=== PATIENT | male | born 1950 | race Caucasian/White ===

== ENCOUNTER 2018-09-07 08:36 | Inpatient (IN) | payer MEDICARE, BC ==
[2018-09-07 09:57] VITALS: BP 164/80
[2018-09-07] MEDS ORDERED: Maalox 30 mL Cup PO PRN (10:12)
[2018-09-07] MEDS ORDERED: Magnesium Hydroxide (MOM) 30 mL UDC PO PRN (10:12)
[2018-09-07] MEDS: Carbidopa/Levodopa 50/200 mg 1 TER TER PO SCH (17:12)
[2018-09-07] MEDS: Atorvastatin Calcium 10 MG TAB PO SCH (20:26)
--- NOTE | 2018-09-08 03:41 | History & Physical ---
ADMIT DATE: 09/07/2018 REASON FOR CONSULTATION: For Internal Medicine coverage. HISTORY OF PRESENT ILLNESS: This is a 68-year-old male with past medical history of PTSD, who was brought in because of aggressive behavior. A few hours prior to admission, the patient was very aggressive, agitated, and throwing objects to his and son. The Police Department was called and he was taken in for a 5150 hold. He then proceeded to the [facility] Emergency Room wherein he underwent extensive workup. His blood pressure upon arrival was 170/80, but chest x-ray revealed no acute disease. Urine exam was negative for any toxins. PAST MEDICAL HISTORY: 1. PTSD ([place] ). 2. Alzheimer dementia. 3. Parkinson's disease. 4. Essential hypertension. CURRENT MEDICATIONS: He is currently on acetaminophen, atorvastatin, carbidopa/levodopa, lorazepam, losartan, multivitamins, and zolpidem. ALLERGIES: SULFA. SOCIAL AND FAMILY HISTORY: I was not able to obtain directly from the patient because he is currently sedated due to his aggressive behavior. REVIEW OF SYSTEMS: Again, I was not able to decipher from the patient because of the same reason. PHYSICAL EXAMINATION: GENERAL: As mentioned, the patient is sedated, quiet at the present time. VITAL SIGNS: He is afebrile, blood pressure 164/80, and pulse is 60. SKIN: Poor turgor, warm, no rash, no jaundice appreciated. HEENT: Head normocephalic, atraumatic. Eyes: Unable to assess his extraocular muscles. Pupils are equal, round, reactive to light and accommodates. Anicteric sclerae. Pale conjunctivae. Nose, midline nasal septum. Mouth: Dry mucosa, poor dentition. NECK: Supple, no adenopathy, no thyromegaly, no bruits. Trachea palpated in the midline. CHEST AND CARDIOVASCULAR: S1, S2. No rub, murmur, nor gallop appreciated. Point of maximal impulse fifth intercostal space, left midclavicular line. No abdominal or femoral bruits appreciated. LUNGS: Equal expansion. No use of accessory muscles. No supraclavicular retractions. Decreased breath sounds, few rhonchi, but no rales nor wheezes appreciated. ABDOMEN: Flat, soft, positive for bowel sounds. No bruits either diastolic or systolic. RECTAL: Deferred. GENITOURINARY: Deferred. MUSCULOSKELETAL: No effusions present in his joints, but unable to assess his range of motion. EXTREMITIES: No evidence of edema, cyanosis, nor clubbing, with palpable femoral, popliteal, and dorsalis pedis pulses. NEUROLOGIC: The patient as mentioned is sedated, so I was not able to pursue further my neuro exam. IMPRESSION: 1. Acute psych decompensation. 2. Posttraumatic stress disorder. 3. Alzheimer dementia. 4. Parkinson's disease. 5. Essential hypertension. PLAN: 1. Control blood pressures secondary to his agitation. 2. Continue on with psych meds. JOB# [id number]
[2018-09-08 07:31] LABS: % BASOPHILS 0.5 % (0.0-2.0); % LYMPHOCYTES 19.9 % (20.0-50.0); % MONOCYTES 9.9 % (2.0-10.0); % NEUTROPHILS 67.7 % (40.0-80.0); EOSINOPHILE ABSOLUTE 0.1 Th/cmm (0.1-0.4); HEMATOCRIT 42.1 % (41.0-60); HEMOGLOBIN 14.6 gm/dL (12-16); LYMPHOCYTE ABSOLUTE 1.3 Th/cmm (1.5-3.0); MEAN CELL VOLUME 86.1 fl (80-99); MEAN CORPUSCULAR HEMOGLOBIN 29.8 pg (27.0-31.0); MEAN CORPUSCULAR HGB CONC 34.6 pg (28.0-36.0); MEAN PLATELET VOLUME 7.7 fl; MONOCYTE ABSOLUTE 0.6 Th/cmm (0.3-1.0); NEUTROPHILE ABSOLUTE 4.5 Th/cmm (1.8-8.0); PLATELET COUNT 180 Th/cmm (150-400); RED CELL DISTRIBUTION WIDTH 12.4 % (11.5-20.0); WHITE BLOOD COUNT 6.5 Th/cmm (4.8-10.8)
[2018-09-08 07:50] LABS: ALB/GLOB RATIO 1.6 (1.0-1.8); ALBUMIN 3.6 gm/dL (4.2-5.5); ALKALINE PHOSPHATASE 63 U/L (34-104); ANION GAP 11.8 (7.0-16.0); BILIRUBIN,TOTAL 0.8 mg/dL (0.3-1.0); BUN - UREA NITROGEN 16 mg/dL (7-25); CALCIUM SERUM 8.9 mg/dL (8.6-10.3); CARBON DIOXIDE 27.8 mEq/L (21.0-31.0); CHLORIDE 107 mEq/L (98-107); CHOLESTEROL 129 mg/dL (<200); GFR AFRICAN-AMERICAN > 60.0 ml/min (>90); GFR NON AFRICAN-AMERICAN > 60.0 ml/min; GLUCOSE 140 mg/dL (70-105); HDL -HIGH DENSITY LIPOPROTEIN 29 mg/dL (23-92); POTASSIUM SERUM 3.6 mEq/L (3.5-5.1); SGOT 35 U/L (13-39); SGPT/ALT 20 U/L (7-52); SODIUM SERUM 143 mEq/L (136-145); TOTAL PROTEIN,SERUM 5.8 gm/dL (6.0-8.3); TRIGLYCERIDES 92 mg/dL (<150)
[2018-09-08] MEDS ORDERED: Non-Formulary Item 1 EA (Losartan Potassium [Cozaar] 100 MG) PO SCH (09:00)
[2018-09-08] MEDS: Carbidopa/Levodopa 50/200 mg 1 TER TER PO SCH ×2 (09:25→17:14)
[2018-09-08] MEDS: Multivitamin Tab PO SCH (09:25)
--- NOTE | 2018-09-08 13:00 | Psychiatric Evaluation ---
DATE OF SERVICE: 09/07/2018 IDENTIFYING INFORMATION: The patient is a 68-year-old male. CHIEF COMPLAINT: No information. HISTORY OF PRESENT ILLNESS: The patient is brought because of aggressive behavior with a history of PTSD. The patient was very aggressive few hours prior to admission, agitated, throwing objects on his and son; the police, mom has called and was taken in for a on hold, then proceeded to [facility] Emergency Room, where he underwent extensive workup. The patient is a [place] with a history of dementia, Parkinson disease, and PTSD. The patient was a poor historian, unable to participate in meaningful conversation or make safe plan for self-care or tell me why he is here. PAST PSYCHIATRIC HISTORY: PTSD, Alzheimer's. MEDICAL HISTORY: The patient with a history of Alzheimer, Parkinson's disease, essential hypertension. ALLERGIES: THE PATIENT IS ALLERGIC TO SULFA ANTIBIOTICS. MEDICATIONS: The patient has been on atorvastatin, Sinemet and Aricept 10 mg at bedtime, losartan, and multivitamins. He is on Zoloft 50 mg a day with no side effects. ASSESSMENT AND PLAN: He continues to be confused, has no clue about what he was doing, ____ aggressive behavior. Continues to be unpredictable, impulsive, needing redirection, unable to follow up moods and we will continue with the patient in group therapy, milieu therapy, and adjust medications as needed. JOB# [id number]
[2018-09-08] MEDS: Atorvastatin Calcium 10 MG TAB PO SCH (20:50)
[2018-09-09] MEDS: Carbidopa/Levodopa 50/200 mg 1 TER TER PO SCH ×2 (15:48→16:55)
[2018-09-09] MEDS: Multivitamin Tab PO SCH (15:48)
[2018-09-09] MEDS: Atorvastatin Calcium 10 MG TAB PO SCH (20:39)
--- NOTE | 2018-09-09 23:30 | Progress Notes ---
DATE: 09/09/[address] Lugo. Case was discussed with staff of the patient, reviewed records. The patient continues to be irritable, continues to have poor insight, continues to be unable to make safe plan for self-care, continues to be unpredictable and impulsive, and continues to have episodes of agitation. The patient with a history of Alzheimer and PTSD. He has been compliant with the medication with no side effects, no sedation, no nausea, and no extrapyramidal symptoms. We will continue the patient in group therapy, milieu therapy, and adjust medications as needed. JOB# [id number]
[2018-09-10] MEDS: Multivitamin Tab PO SCH (09:44)
[2018-09-10] MEDS: Carbidopa/Levodopa 50/200 mg 1 TER TER PO SCH ×2 (09:44→17:29)
[2018-09-10] MEDS: Atorvastatin Calcium 10 MG TAB PO SCH (20:36)
--- NOTE | 2018-09-11 05:11 | Progress Notes ---
DATE: 09/10/2018 SUBJECTIVE: Chart reviewed and the patient interviewed. Also discussed the patient's condition with the staff and reviewed records and labs. The patient is still confused and he is still unable to answer any of my questions coherently and he was rambling during answering questions. The patient also did not give any reason why he was threatening his with a kitchen pot. He also still needs lots of redirections because of his confusion and also he is still agitated. Otherwise, the patient is compliant with taking his medications, which include Zoloft and Aricept and Sinemet and with no side effects. TREATMENT PLAN: We will continue monitoring his behavior and his condition closely. Also continue adjusting psychotropic medications. Also, the patient will be placed on a 5250 hold for dangerous to others and grave disability and will continue to follow up closely. JOB# [id number]
--- NOTE | 2018-09-11 08:11 | Progress Notes ---
DATE: SUBJECTIVE: Chart reviewed and the patient interviewed. Also discussed the patient's condition with the staff and reviewed records and labs. The patient is still confused and forgetful and still actively hallucinating and talking to himself. The patient also is restless and he still needs lots of redirections. The patient also is still in angry mood. Otherwise, the patient is compliant with taking his medications with no side effects of medications. ASSESSMENT: The patient is still agitated and is still psychotic. TREATMENT PLAN: We will continue to monitor behavior and condition closely. Also, continue to work on his anger and irritability and is still having severe mood swings. We will start the patient on Seroquel 25 mg at bedtime and continue to monitor his behavior and his condition closely. JOB# [id number]
[2018-09-11] MEDS: Carbidopa/Levodopa 50/200 mg 1 TER TER PO SCH ×2 (09:38→17:08)
[2018-09-11] MEDS: Multivitamin Tab PO SCH (09:38)
[2018-09-11] MEDS: Atorvastatin Calcium 10 MG TAB PO SCH (21:42)
[2018-09-12] MEDS: Multivitamin Tab PO SCH (09:00)
[2018-09-12] MEDS: Carbidopa/Levodopa 50/200 mg 1 TER TER PO SCH ×2 (09:00→17:28)
[2018-09-12] MEDS: Atorvastatin Calcium 10 MG TAB PO SCH (21:18)
[2018-09-13] MEDS: Carbidopa/Levodopa 50/200 mg 1 TER TER PO SCH ×2 (08:35→18:15)
[2018-09-13] MEDS: Multivitamin Tab PO SCH (08:35)
[2018-09-13] MEDS: Atorvastatin Calcium 10 MG TAB PO SCH (20:47)
--- NOTE | 2018-09-14 06:24 | Progress Notes ---
DATE: 09/13/2018 IDENTIFYING DATA: A 68-year-old male initially brought in here because he presented very aggressive with history of PTSD. He was throwing objects to his and his son and police had to be called in. CURRENT MEDICATIONS: Include the following: Aricept 10 mg a day, lorazepam, quetiapine 25 mg at bedtime and Zoloft 50 mg. Overnight nursing staff reported the patient continues to be easily forgetful, confused. Today on [id number] evaluation, the patient continues to respond, easily irritable, restless. ASSESSMENT AND PLAN: Due to the patient's agitated easily and psychotic behavior, we will continue with the current medication regimen, was recently initiated on the Seroquel 25, which he had been able to tolerate without complications or side effects of medications. JOB# [id number]
[2018-09-14] MEDS: Multivitamin Tab PO SCH (10:26)
[2018-09-14] MEDS: Carbidopa/Levodopa 50/200 mg 1 TER TER PO SCH ×2 (10:26→16:48)
--- NOTE | 2018-09-14 19:52 | Progress Notes ---
DATE: 09/14/2018 SUBJECTIVE: The patient was seen and evaluated. The patient's chart reviewed. Covering for Dr. Lugo. Nursing staff reported that the patient continued needing lot of redirection and has been easily agitated. Today on [id number] evaluation, the patient disengaged, withdrawn in the interview, does not want to participate in the interview over his head. ASSESSMENT AND PLAN: Due to the patient's disorganized behavior and disengaged in the interview demonstrating extremely impulsive behavior and also unable to engage in the conversation. We will continue with the recent initiation of the Seroquel to continue the patient's target symptoms of highly impulsive behavior. JOB# [id number]
[2018-09-14] MEDS: Atorvastatin Calcium 10 MG TAB PO SCH (21:30)
--- NOTE | 2018-09-14 21:56 | Progress Notes ---
DATE: 09/12/2018 PSYCHIATRIC PROGRESS NOTE DATE OF SERVICE: 09/12/2018. SUBJECTIVE: Chart reviewed and the patient interviewed. Also discussed the patient's condition with the staff and reviewed records and labs. The patient continues to be confused. The patient also is actively hallucinating and talking to self. Also, confused and still needs lots of redirections. Otherwise, the patient is compliant with taking Seroquel with no side effect of Seroquel. ASSESSMENT: The patient is still psychotic and needs close monitoring. TREATMENT PLAN: Continue to monitor behavior and condition closely. Also, continue adjusting psychotropic medications and work on behavioral modification. JOB# [id number]
[2018-09-15] MEDS: Multivitamin Tab PO SCH (09:33)
[2018-09-15] MEDS: Carbidopa/Levodopa 50/200 mg 1 TER TER PO SCH ×2 (09:33→17:16)
--- NOTE | 2018-09-15 20:12 | Progress Notes ---
DATE: 09/15/2018 SUBJECTIVE: Chart reviewed and the patient interviewed. Also, discussed the patient's condition with the staff and reviewed records and labs. The patient is still actively hallucinating and actively talking to himself. The patient also is still confused and still responding to stimuli. The patient also is still having episodes of period of agitation. Also, difficulty sleeping at night. Otherwise, the patient is compliant with taking medications with no side effects of medications. ASSESSMENT: The patient is still confused and depressed. TREATMENT PLAN: We will continue to monitor behavior and condition closely. Also, decrease Seroquel to 50 mg at bedtime and will continue to follow up. JOB# [id number]
[2018-09-15] MEDS: Atorvastatin Calcium 10 MG TAB PO SCH (20:57)
[2018-09-16] MEDS: Carbidopa/Levodopa 50/200 mg 1 TER TER PO SCH ×2 (09:47→18:06)
[2018-09-16] MEDS: Multivitamin Tab PO SCH (09:48)
[2018-09-16] MEDS: Atorvastatin Calcium 10 MG TAB PO SCH (20:28)
--- NOTE | 2018-09-16 21:52 | Progress Notes ---
DATE: 09/16/2018 SUBJECTIVE: Chart reviewed and the patient interviewed. Also discussed the patient's condition with the staff and reviewed records and labs. The patient continued to be confused and still needs lots of redirections. The patient also is still actively hallucinating and staring to the wall. The patient also is still having episodes of agitation and anger, but seems to be much less than before according to the staff. ASSESSMENT: The patient is still confused and psychotic. TREATMENT PLAN: Continue to monitor behavior and condition closely. Also, continue to work on ineffective coping and his behavioral modification. JOB# [id number]
[2018-09-17] MEDS: Carbidopa/Levodopa 50/200 mg 1 TER TER PO SCH ×2 (08:32→16:11)
[2018-09-17] MEDS: Multivitamin Tab PO SCH (08:34)
[2018-09-17] MEDS: Atorvastatin Calcium 10 MG TAB PO SCH (20:24)
--- NOTE | 2018-09-18 00:28 | Progress Notes ---
DATE: 09/17/2018 SUBJECTIVE: Chart reviewed and the patient interviewed. Also, discussed the patient's condition with the staff and reviewed records and labs. The patient is still in irritable and angry mood and still agitated. The patient also is suspicious and is slightly paranoid. Otherwise, the patient is cooperative and compliant with taking his medications with no side effects of medications. ASSESSMENT: The patient is still anxious and irritable mood. TREATMENT PLAN: Continue monitoring his behavior and his condition closely. Also, continue adjusting psychotropic medications and working on discharge plans and placement issue. The possible placement of the patient in [facility] and we will try to work with the briefcase sewer in that regard. JOB# [id number]
[2018-09-18] MEDS: Multivitamin Tab PO SCH (09:09)
[2018-09-18] MEDS: Carbidopa/Levodopa 50/200 mg 1 TER TER PO SCH ×2 (09:10→16:53)
[2018-09-18] MEDS: Atorvastatin Calcium 10 MG TAB PO SCH (20:14)
--- NOTE | 2018-09-19 08:03 | Progress Notes ---
DATE: SUBJECTIVE: Chart reviewed and the patient interviewed. Also discussed the patient's condition with the staff and reviewed records and labs. The patient's affect is brighter. The patient is less agitated and less irritable. Also interacting more with peers and with others. The patient denied any intention to harm himself or others. The patient also is compliant with taking his medications. Also decreased hallucinations. ASSESSMENT: The patient is still psychotic. TREATMENT PLAN: Continue to monitor his behavior. ____. Also, we will continue to work on behaviour modification and followup. JOB# [id number]
[2018-09-19] MEDS: Carbidopa/Levodopa 50/200 mg 1 TER TER PO SCH (09:45)
[2018-09-19] MEDS: Multivitamin Tab PO SCH (09:48)
--- NOTE | 2018-09-19 20:53 | Progress Notes ---
DATE: 09/19/2018 Case was discussed with staff of the patient, reviewed records. This is a well-known patient to me as I have seen him before covering for, Dr. Lugo. The patient's affect is brighter, less agitated, and irritable. Working on discharge plan. He is denying any current intent to harm himself or anybody. He is compliant with the medication with no side effect. The patient is on Aricept 10 mg at bedtime. Seroquel was increased to 50 mg at bedtime. He is on Zoloft 50 mg daily with no side effects, no sedation, no nausea and we will continue with the patient in group therapy, milieu therapy, adjust medication as needed. JOB# [id number]
== END 2018-09-19 16:00 | DRG 885 ==
LOC: GERO2 08:36 → GERO 09-08 19:43
PROVIDERS: ADMIT Psychiatry & Neurology Psychiatry; ATTEND Psychiatry & Neurology Psychiatry
DX: F23 Brief psychotic disorder (principal); G30.9 Alzheimer's disease, unspecified; F02.80 Dementia in other diseases classified elsewhere, unspecified severity, without behavioral disturbance, psychotic disturbance, mood disturbance, and anxiety; F43.10 Post-traumatic stress disorder, unspecified; I10 Essential (primary) hypertension; G20 Parkinson's disease; F41.9 Anxiety disorder, unspecified; Z88.2 Allergy status to sulfonamides
CPT/HCPCS: 36415-UA; 80053-TC; 80061-TC; 83036-90; 85025-TC; G0410; J1200; J2060; Z7610